=== PATIENT | female | born 1940 | race Caucasian/White ===

== ENCOUNTER 2022-03-15 05:30 | Outpatient (CLI) | payer MEDICARE ==
[~2022-03-15] VITALS: Ht 152.4 cm; Wt 63.6 kg
[2022-03-19] MEDS ORDERED: ESCI-2 PO (08:34)
== END 2022-03-19 10:19 | disposition home or self-care (01) ==
LOC: PREOP 05:30
PROVIDERS: ATTEND Otolaryngology Otolaryngology/Facial Plastic Surgery
DX: Z01.818 Encounter for other preprocedural examination (principal)

== ENCOUNTER 2022-03-22 06:29 | Day surgery (SDC) | payer MEDICARE ==
[2022-03-22] VITALS (12 sets, daily range): BP systolic 126–150; BP diastolic 55–77
[~2022-03-22] VITALS: Ht 152.4 cm; Wt 63.6 kg
[~2022-03-22 06:29] MED LIST: ESCI-2 PO
--- NOTE | 2022-03-22 07:04 | Progress Note-Pre Operative ---
Pre-Operative Progress Note Date of Available H&P: Mar 22, 2022 Date H&P Reviewed: Mar 22, 2022 Time H&P Reviewed: 06:30 History & Physical: H&P Reviewed, Patient Examed, No changes noted Changes from last HP none Pre-Operative Diagnosis: Large right scalp lesion LUIS ENRIQUE HAMILTON MD Mar 22, 2022 07:04
[2022-03-22] MEDS: LACTATED RINGERS 1,000 ML IV PRN ×2 (07:10→08:57)
[2022-03-22] MEDS ORDERED: MUPIROCIN 2% OINT 22 GM (BACTROBAN) TUBE ONE (07:13)
[2022-03-22 07:27] LABS: BASOPHILS # (AUTO) 0.1 10^3/uL (0.0-0.1); BASOPHILS % (AUTO) 1 % (0-10); EOSINOPHILS # (AUTO) 0.2 10^3/uL (0.0-0.3); EOSINOPHILS % (AUTO) 2 % (0-10); HEMATOCRIT 45 % (35-52); HEMOGLOBIN 14.8 g/dL (11.5-16.0); LYMPHOCYTES # (AUTO) 2.5 10^3/uL (1.0-4.0); LYMPHOCYTES % (AUTO) 22 % (12-44); MEAN CORPUSCULAR HEMOGLOBIN 32 pg (25-34); MEAN CORPUSCULAR HGB CONC 33 g/dL (32-36); MEAN CORPUSCULAR VOLUME 98 fL (80-99); MEAN PLATELET VOLUME 11.6 fL (9.0-12.2); MONOCYTES # (AUTO) 0.7 10^3/uL (0.0-1.0); MONOCYTES % (AUTO) 7 % (0-12); NEUTROPHILS # (AUTO) 7.7 10^3/uL (1.8-7.8); NEUTROPHILS % (AUTO) 69 % (42-75); PLATELET COUNT 225 10^3/uL (130-400); WHITE BLOOD COUNT 11.2 10^3/uL (4.3-11.0)
[2022-03-22] MEDS ORDERED: fentaNYL INJ 100 MCG/2 ML AMP ONE (07:35)
[2022-03-22 07:39] LABS: CALCIUM 9.2 MG/DL (8.5-10.1); CREATININE SERUM 0.81 MG/DL (0.60-1.30); POTASSIUM 3.8 MMOL/L (3.6-5.0)
[2022-03-22] MEDS: LIDOCAINE/EPI 2% 1:200,00 (XYLOCAINE) 20 ML VIAL ONE (07:57)
[2022-03-22] MEDS ORDERED: proPOfol 200 MG/20 ML (DIPRIVAN) VIAL IV ONE (08:03)
[2022-03-22] MEDS ORDERED: LIDOCAINE PF 2% 5 ML (XYLOCAINE) VIAL ONE (08:03)
[2022-03-22] MEDS ORDERED: SEVOFLURANE (ULTANE) 15 ML INHAL SOLN ONE ×2 (08:03→09:02)
[2022-03-22] MEDS ORDERED: ONDANSETRON 4 MG/2 ML (SDV) Z0FRAN ONE (08:03)
[2022-03-22] MEDS ORDERED: GLYCOPYRROLATE 0.2 MG/ML (ROBINUL) 2 ML VIAL ONE (08:11)
[2022-03-22] MEDS ORDERED: PHENYLEPHRINE 100 MCG/ML 10 ML (ANESTHESIA) SYR ONE ×2 (08:32→09:01)
--- NOTE | 2022-03-22 09:01 | Progress Note-Post Operative ---
Post-Operative Progess Note Surgeon (s)/Biomechanical Engineer (s) Surgeon LUIS ENRIQUE HAMILTON MD Biomechanical Engineer n/a Pre-Operative Diagnosis Large right scalp lesion Post-Operative Diagnosis same Post-Op Procedure Note Date of Procedure: Mar 22, 2022 Name of Procedure Performed: Excsion of Right SCalp Lesiuon, Reconstructions iwth FTSG, Donor site right neck Description & Findings Description and Findings: n/a Anesthesia Type gen lma Estimated Blood Loss minimal Packing none. Specimen(s) collected/removed scalp lesioopn-to path-nodular and infiltrative basal cell LUIS ENRIQUE HAMILTON MD Mar 22, 2022 09:01
[2022-03-22] MEDS ORDERED: ACETAMINOPHEN 325 MG TABLET PO PRN (09:15)
[2022-03-22] MEDS ORDERED: HYDROcodone/APAP 5 MG/325 MG (LORTAB) TAB PO PRN (09:15)
[2022-03-22] MEDS ORDERED: HYDROmorphone 2 MG/ML VIAL (DILAUDID) IV ONE (09:30)
[2022-03-22] MEDS ORDERED: ONDANSETRON 4 MG/2 ML (SDV) Z0FRAN IVP PRN (09:30)
[2022-03-22] MEDS ORDERED: ACHD5005 PO (10:20)
[2022-03-22] MEDS ORDERED: CEPH500T PO (10:20)
--- NOTE | 2022-03-22 14:33 | Anesthesia-General Post-Op ---
General Patient Condition Mental Status/LOC: Same as Preop Cardiovascular: Satisfactory Nausea/Vomiting: Absent Respiratory: Satisfactory Pain: Controlled Complications: Absent Post Op Complications Complications None Follow Up Care/Instructions Patient Instructions None needed. Anesthesia/Patient Condition Patient Condition Patient is doing well, no complaints, stable vital signs, no apparent adverse anesthesia problems. No complications reported per nursing. D/C home per [facility] Criteria: Yes BEL KHAN CRNA Mar 22, 2022 14:33
== END 2022-03-22 11:30 ==
LOC: SDC 06:29
PROVIDERS: ATTEND Otolaryngology Otolaryngology/Facial Plastic Surgery
DX: C44.42 Squamous cell carcinoma of skin of scalp and neck (principal)
CPT/HCPCS: 36415; 80048; 85025; 87081; 93005

== ENCOUNTER 2022-08-18 18:14 | Emergency (ER) | payer MEDICARE ==
[~2022-08-18] VITALS: Ht 152 cm; Wt 63.6 kg
[~2022-08-18 18:14] MED LIST changes: +ACHD5005 PO; +CEPH500T PO
[2022-08-18 18:29] VITALS: BP 147/82
[2022-08-18] MEDS ORDERED: HYDROcodone/APAP 5 MG/325 MG (LORTAB) TAB PO ONE (20:00)
--- NOTE | 2022-08-18 20:04 | Diagnostic Imaging Report ---
EXAMINATION: Right shoulder radiographs, 3 views. COMPARISON: None. HISTORY: 82-year-old female, fall. Right shoulder pain. FINDINGS: There is a comminuted displaced fracture of the right proximal humerus involving at least the greater tuberosity and humeral neck. The humeral head is normally positioned relative to the glenoid. There is no glenohumeral joint space loss. The acromioclavicular joint is intact. IMPRESSION: Displaced fracture of the right proximal humerus involving at least the humeral neck and greater tuberosity with displacement of the greater tuberosity fracture fragment. Dictated by: Dictated on workstation # [id number]
[2022-08-18] MEDS ORDERED: ACHD5005 PO (20:17)
[2022-08-18] MEDS ORDERED: CYCL5TAB PO (20:17)
--- NOTE | 2022-08-18 20:18 | ED Upper Extremity ---
General Chief Complaint: Upper Extremity Stated Complaint: FALL, RIGHT ARM PAIN Nursing Triage Note: PT AMB TO TRIAGE CO OF R UPPER ARM PAIN, STATES FELL INSIDE AT HOME THIS AFTERNOON. STATES FELL FLAT, DENIES HITTING HEAD. DENIES LOC Source: patient Exam Limitations: no limitations History of Present Illness Date Seen by Provider: Aug 18, 2022 Time Seen by Provider: 19:20 Initial Comments History provided by patient. Patient is an 82-year-old female who presents to the emergency department with right upper arm pain after she had a mechanical fall at home this afternoon. She denies hitting her head. Denies any pain outside of that in her right upper arm. States the pain is moved with any motion of her right shoulder. She has not taken anything for the symptoms since that happened. She is currently wearing an arm sling that she had at home from a prior injury. Allergies and Home Medications Allergies Coded Allergies: Penicillins (Verified Allergy, Unknown, 03/22/22) Patient Home Medication List Home Medication List Reviewed: Yes Cephalexin (Cephalexin) 500 Mg Tablet, 500 MG PO TID Prescribed by: SUMMER BRAR on 03/22/22 1020 Cyclobenzaprine HCl (Cyclobenzaprine HCl) 5 Mg Tablet, 5 MG PO TID PRN for SPASMS Prescribed by: Ayush Watson on 08/18/222016 Escitalopram Oxalate (Escitalopram Oxalate) 10 Mg Tablet, 10 MG PO DAILY, (Reported) Entered as Reported by: INDU ROJAS on 03/19/22 0834 Hydrocodone/Acetaminophen (Hydrocodone-Acetamin 5-325 mg) 5 Mg-325 Mg Tablet, 1 TAB PO Q4H PRN for PAIN-MODERATE (5-7) Prescribed by: SUMMER BRAR on 03/22/22 1020 Hydrocodone/Acetaminophen (Hydrocodone-Acetamin 5-325 mg) 5 Mg-325 Mg Tablet, 1 TAB PO Q4H PRN for PAIN-MODERATE (5-7) Prescribed by: Ayush Watson on 08/18/222017 Review of Systems Constitutional: no symptoms reported EENTM: no symptoms reported Respiratory: no symptoms reported Cardiovascular: no symptoms reported Gastrointestinal: no symptoms reported Genitourinary: no symptoms reported Musculoskeletal: see HPI Skin: no symptoms reported Psychiatric/Neurological: No Symptoms Reported Past Itbmzys-Lfqdwy-Ztdqmv Hx Patient Social History Tobacco Use?: No Substance use?: No Alcohol Use?: No Pt feels they are or have been: No Immunizations Up To Date Influenza Vaccine Up-to-Date: No; Not Current First/Initial COVID19 Vaccinat: 10/29 Second COVID19 Vaccination Dayday: 11/29 Third COVID19 Vaccination Date: 07/31 Seasonal Allergies Seasonal Allergies: Yes Past Medical History Surgery/Hospitalization HX: BASAL CELL CA HEAD Surgeries: Yes (MOLE REMOVED) Currently Using CPAP: No Currently Using BIPAP: No Cardiac: No Neurological: No Genitourinary: No Gastrointestinal: Yes Gastroesophageal Reflux Endocrine: No HEENT: No Cancer: Yes Skin What Type of Treatment Did You: Surgical Intervention Psychosocial: Yes Depression Integumentary: Yes (scalp bcc) Recent Skin Changes Blood Disorders: No Physical Exam Vital Signs Vital Signs - First Documented 08/18/22 18:29 Temp 37.0 Pulse 106 Resp 18 B/P (MAP) 147/82 (103) Pulse Ox 95 Capillary Refill : Less Than 3 Seconds Height, Weight, BMI Height: '" Weight: lbs. oz. kg; 27.00 BMI Method: General Appearance: WD/WN, no apparent distress HEENT: PERRL/EOMI, normal ENT inspection, TMs normal, pharynx normal Neck: non-tender, full range of motion, supple, normal inspection Cardiovascular: regular rate, rhythm Respiratory: chest non-tender, lungs clear, normal breath sounds, no respiratory distress, no accessory muscle use Gastrointestinal: normal bowel sounds, non tender, soft Shoulder: bone tenderness, limited ROM, pain Neurologic/Psychiatric: no motor/sensory deficits, alert, normal mood/affect, oriented x 3 Skin: normal color, warm/dry Progress/Results/Core Measures Results/Orders My Orders Medications Given in ED Vital Signs/I&O Blood Pressure Mean: 103 Progress Progress Note : Progress Note Patient is nontoxic and well-hydrated on exam. Vital signs are reassuring. Patient does have some tenderness to palpation about the right lateral upper humerus. No exam findings consistent with shoulder dislocation noted. Neurovascular function of the distal right upper extremity appears intact. Patient did not lose consciousness and there is no evidence of any head injury at this time. X-ray of the right shoulder ordered. X-ray reveals proximal humerus fracture on my read. Formal radiology read agrees and also notes a displaced fracture fragment. I spoke with Dr. Ramsey with orthopedics who recommends patient be placed in a sling and that they follow-up in the office. No further urgent intervention or testing indicated per his recommendation. Patient will be discharged home with these guidelines. Patient was given a prescription for analgesia. Return precautions for urgent symptomology discussed. Patient verbalized understanding. Departure Impression Primary Impression: Closed fracture of right proximal humerus Qualified Codes: S42.291A - Other displaced fracture of upper end of right humerus, initial encounter for closed fracture Disposition: HOME, SELF-CARE Condition: Stable Departure-Patient Inst. Decision time for Depature: 20:15 Referrals: KEILA POLANCO DO (PCP/Family) Primary Care Physician DANIS RAMSEY MD Patient Instructions: Upper Arm Fracture ED Add. Discharge Instructions: Wear the sling for comfort. You will need to follow-up with Dr. Ramsey with or gerry sometimes this week. Call his office number supplied on your paperwork to establish an appointment. He has been given medications to take both for the pain as well as the spasming. All discharge instructions reviewed with patient and/or family. Voiced understanding. Scripts Cyclobenzaprine HCl (Cyclobenzaprine HCl) 5 Mg Tablet 5 MG PO TID PRN for SPASMS for 3 Days, #9 TAB 0 Refills Prov: AYUSH WATSON APRN 08/18/22 Hydrocodone/Acetaminophen (Hydrocodone-Acetamin 5-325 mg) 5 Mg-325 Mg Tablet 1 TAB PO Q4H PRN for PAIN-MODERATE (5-7) for 3 Days, #18 TAB 0 Refills Prov: AYUSH WATSON APRN 08/18/22 AYUSH WATSON APRN Aug 18, 2022 20:18
== END 2022-08-18 20:40 | disposition home or self-care (01) ==
LOC: EDUNIT# 18:14 → ER 18:17
DX: S42.201A Unspecified fracture of upper end of right humerus, initial encounter for closed fracture (principal); W19.XXXA Unspecified fall, initial encounter; Y92.009 Unspecified place in unspecified non-institutional (private) residence as the place of occurrence of the external cause
CPT/HCPCS: 73030

== ENCOUNTER → 2022-08-27 | Outpatient (CLI) | payer MEDICARE ==
[~2022-08-27] MED LIST changes: +CYCL5TAB PO
== END ==
LOC: ORTHO 10:02
PROVIDERS: ATTEND Orthopaedic Surgery
DX: S42.201A Unspecified fracture of upper end of right humerus, initial encounter for closed fracture (principal); X58.XXXA Exposure to other specified factors, initial encounter
CPT/HCPCS: 99203

== ENCOUNTER → 2022-09-11 | Outpatient (CLI) | payer MEDICARE ==
--- NOTE | 2022-09-11 11:44 | Diagnostic Imaging Report ---
EXAMINATION: Right shoulder radiographs, 3 views. COMPARISON: Right shoulder radiographs August 18, 2022. HISTORY: 82-year-old female, followup right proximal humerus fracture. FINDINGS: There is a comminuted displaced multipart fracture of the right proximal humerus with fracture involvement of at least the humeral neck and greater tuberosity. There is lateral displacement of the tuberosity fracture fragment by approximately 12 mm which is essentially unchanged since the comparison study. There is interval periosteal reaction present. There are persistent visible fracture lines. The acromioclavicular joint is normally aligned. There are mild acromioclavicular degenerative changes without large undersurface osteophyte. IMPRESSION: 1. Redemonstrated comminuted displaced multipart fracture of the right proximal humerus involving at least the humeral neck and greater tuberosity with unchanged displacement of fracture fragments. There is interval periosteal reaction with visible fracture lines. Dictated by: Dictated on workstation # [id number]
== END ==
LOC: ORTHO 10:14
PROVIDERS: ATTEND Orthopaedic Surgery
DX: Z47.89 Encounter for other orthopedic aftercare (principal); S42.201D Unspecified fracture of upper end of right humerus, subsequent encounter for fracture with routine healing; X58.XXXD Exposure to other specified factors, subsequent encounter
CPT/HCPCS: 73030; G0463; 99213

== ENCOUNTER → 2022-09-26 | Outpatient (CLI) | payer MEDICARE ==
--- NOTE | 2022-09-26 16:27 | Diagnostic Imaging Report ---
INDICATION: Fracture. COMPARISON: 09/11/2022. FINDINGS: There has been increased endosteal and periosteal new bone formation associated with the healing comminuted fractures of the proximal humerus involving its neck and head at the greater tuberosity. Bony alignment appears more anatomic than on prior and there has been no adverse change. IMPRESSION: Partial healing and improved alignment of comminuted proximal humeral fractures without dislocation. Dictated by: Dictated on workstation # [id number]
== END ==
LOC: ORTHO 13:46
PROVIDERS: ATTEND Orthopaedic Surgery
DX: S42.201D Unspecified fracture of upper end of right humerus, subsequent encounter for fracture with routine healing (principal); X58.XXXD Exposure to other specified factors, subsequent encounter
CPT/HCPCS: 73030; G0463; 99213

== ENCOUNTER → 2022-10-31 | Outpatient (CLI) | payer MEDICARE ==
--- NOTE | 2022-10-31 11:59 | Diagnostic Imaging Report ---
INDICATION: Pain. COMPARISON is made with prior exam of 09/26/2022 FINDINGS: There is a subacute fracture of the right humeral head and neck. This is nondisplaced. There is cardiomegaly. There is some interstitial prominence in lung bases. No pleural effusion or pneumothorax. IMPRESSION: Stable alignment of the subacute fracture involving the right humeral head and neck. Cardiomegaly with some interstitial prominence in the lung bases, likely chronic fibrosis. Dictated by: Dictated on workstation # [id number]
== END ==
LOC: ORTHO 11:32
PROVIDERS: ATTEND Orthopaedic Surgery
DX: S42.391A Other fracture of shaft of right humerus, initial encounter for closed fracture (principal); S12.9XXA Fracture of neck, unspecified, initial encounter; I51.7 Cardiomegaly; X58.XXXA Exposure to other specified factors, initial encounter
CPT/HCPCS: 73030; G0463; 99213

== ENCOUNTER → 2022-12-17 | Outpatient (CLI) | payer MEDICARE | LOC: ORTHO 11:11 | PROVIDERS: ATTEND Orthopaedic Surgery | DX: S42.201A Unspecified fracture of upper end of right humerus, initial encounter for closed fracture (principal); X58.XXXA Exposure to other specified factors, initial encounter | CPT/HCPCS: 99213 ==